=== PATIENT | male | born 1995 | race American Indian/Alaskan Native ===

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

== ENCOUNTER 2017-10-17 08:18 | Emergency (ER) | payer OTHER ==
[2017-10-17 08:56] VITALS: BP 119/82
[2017-10-17] MEDS ORDERED: NACL 0.9% 1000 ML 1,000 ML IV ONE (08:56)
[2017-10-17 09:23] LABS: Hematocrit 51.3 % (35.5-45.6); Hemoglobin 17.1 gm/dl (11.8-15.2); Mean Corpuscular HGB Conc 33 % (32-34); Mean Corpuscular Hemoglobin 27 pg (28-32); Mean Corpuscular Volume 80 fl (84-94); Platelet Count 268 K/mm3 (140-440); Red Blood Count 6.38 M/mm3 (3.65-5.03); Red Cell Distribution Width 14.3 % (13.2-15.2)
[2017-10-17 09:59] LABS: Alanine Aminotransferase 17 units/L (7-56); Albumin 4.7 g/dL (3.9-5); BUN/Creatinine Ratio 14; Blood Urea Nitrogen 14 mg/dL (9-20); Calcium 9.8 mg/dL (8.4-10.2); Hemolysis Index 16
[2017-10-17 10:29] LABS: Basophils % (Manual) 0 % (0.0-1.8); Eosinophils % (Manual) 0 % (0.0-4.3); RBC Morphology Normal; Total Cells Counted 100
[2017-10-17 10:30] LABS: Platelet Estimate Cons
== END 2017-10-17 09:30 | disposition left against medical advice (07) ==
LOC: ED 08:18
DX: R10.9 Unspecified abdominal pain (principal); Z53.21 Procedure and treatment not carried out due to patient leaving prior to being seen by health care provider
CPT/HCPCS: 36415; 80053; 85007; 85025